=== PATIENT | female | born 1985 | race Caucasian/White ===

== ENCOUNTER 2021-12-24 10:07 | Inpatient (IN) ==
[2021-12-24] MEDS ORDERED: Buffered Lidocaine 1% SYRIN 1 ml INTRADERM ONE (10:50)
[2021-12-24] MEDS ORDERED: Lactated Ringers 1000 ml BAG 1,000 ML IV ONE ×2 (10:50→20:29)
[2021-12-24] MEDS ORDERED: miSOPROStol 100 mcg TAB PO ONE (11:17)
[2021-12-24] MEDS ORDERED: Penicillin G Potassium IV 5,000,000 UNITS in NS 0.9% 100 ml BAG 100 ML IVPB ONE (11:18)
[2021-12-24 11:55] LABS: Urine Benzodiazepine Screen None Detected (None Detect); Urine Cannabinoids Screen None Detected (None Detect); Urine Opiates Screen None Detected (None Detect)
[2021-12-24 11:57] LABS: ABS Lymphocytes 1.1 10^3/ul (1.0-4.8); ABS Monocytes 0.6 10^3/ul (0-0.8); ABS Neutrophils 6.6 10^3/ul (1.5-7.7); Eosinophil % 0.5 %; Hematocrit 34 % (35-47); Hemoglobin 11.7 g/dL (12.0-16.0); Lymphocyte % 13.3 %; Mean Corpuscular HGB Conc 35 g/dL (31-36); Mean Corpuscular Hemoglobin 31 pg (27-31); Mean Corpuscular Volume 90 fL (80-97); Mean Platelet Volume 7.4 fL (7.4-10.4); Nucleated Red Blood Cells % 0.1; Platelet Count 233 10^3/uL (150-450); Red Blood Count 3.74 10^6 /uL (3.70-4.87); Red Cell Distribution Width 14 % (10-15); White Blood Count 8.3 10^3/uL (3.5-10.8)
[2021-12-24 12:32] LABS: Urine Appearance Clear; Urine Color Yellow; Urine Specific Gravity 1.015 (1.005-1.030)
[2021-12-24 12:33] LABS: Urine Bilirubin Negative (Negative); Urine Blood Negative (Negative); Urine Glucose Negative (Negative); Urine Ketones Negative (Negative); Urine Nitrite Negative (Negative); Urine Protein Negative (Negative); Urine Urobilinogen 0.2 (Negative) (Negative)
[2021-12-24 12:39] LABS: Albumin 3.4 g/dL (3.2-5.2); Albumin/Globulin Ratio 1.5 (1-3); Globulin 2.2 g/dL (2-4); Potassium 3.2 mmol/L (3.5-5.0); Total Bilirubin 0.5 mg/dL (0.2-1.0); Total Protein 5.6 g/dL (6.4-8.9); Uric Acid 4.2 mg/dL (2.3-6.6)
[2021-12-24 12:50] LABS: Urine Bacteria 2+ (Absent); Urine Red Blood Cell Trace(0-2/hpf) (Absent); Urine Squamous Epithelial Cell Present (Absent); Urine White Blood Cell Trace(0-5/hpf) (Absent)
[2021-12-24 19:07] LABS: HIV 4th Generation Nonreactive (Nonreactive)
[2021-12-24] MEDS ORDERED: OBEPIDURAL (200 ML) 200 ML EPIDURAL ONE (19:40)
[2021-12-24] MEDS ORDERED: Phenylephrine 40 mcg/mL 10mL (400mcg) SYRINGE IV PUSH PRN ×2 (20:29)
[2021-12-24] MEDS ORDERED: Sodium Citrate/Citric Acid LIQ 15 ML UDC PO PRN (20:29)
[2021-12-24] MEDS: Penicillin G Potassium IV 3,000,000 UNITS in NS 0.9% 100 ml BAG 100 ML IVPB SCH (20:50)
[2021-12-24] MEDS ORDERED: Lactated Ringers 1000 ml BAG 1,000 ML IV SCH (21:00)
[2021-12-24] MEDS ORDERED: OBEPIDURAL (200 ML) 200 ML EPIDURAL SCH (21:00)
[2021-12-24 21:11] LABS: Urine Appearance Clear; Urine Color Yellow; Urine Urobilinogen 0.2 (Negative) (Negative)
[2021-12-24 21:12] LABS: Urine Bilirubin Negative (Negative); Urine Blood Negative (Negative); Urine Glucose Negative (Negative); Urine Ketones Negative (Negative); Urine Nitrite Negative (Negative); Urine Protein Negative (Negative)
[2021-12-24] MEDS ORDERED: Oxytocin in LR 20 UNITS/1,000 ML BAG IVPB SCH (23:45)
[2021-12-25] MEDS: Penicillin G Potassium IV 3,000,000 UNITS in NS 0.9% 100 ml BAG 100 ML IVPB SCH ×5 (00:52→17:41)
[2021-12-25] MEDS ORDERED: Lidocaine 2% w/ EPI 1:200,000 MPF 20 ML SDV VIAL ONE ×2 (03:33→06:21)
[2021-12-25] MEDS: Lactated Ringers 1000 ml BAG 1,000 ML IV SCH ×2 (03:43→06:13)
[2021-12-25] MEDS ORDERED: Ondansetron 4 mg VIAL 2 MG/ML 2 ml VIAL ONE ×2 (03:52→19:44)
[2021-12-25] MEDS: Ondansetron 4 mg VIAL 2 MG/ML 2 ml VIAL IV PRN (03:57)
[2021-12-25] MEDS ORDERED: OBEPIDURAL (200 ML) 200 ML EPIDURAL ONE (07:43)
[2021-12-25] MEDS ORDERED: Ropivacaine (OR use only) 2 MG/ML 10 ML ONE ×2 (08:28→10:17)
[2021-12-25] MEDS ORDERED: Sodium Citrate/Citric Acid LIQ 15 ML UDC PO PRN (11:24)
[2021-12-25] MEDS ORDERED: Phenylephrine 40 mcg/mL 10mL (400mcg) SYRINGE IV PUSH PRN ×2 (11:24)
[2021-12-25] MEDS ORDERED: Lactated Ringers 1000 ml BAG 1,000 ML IV ONE (11:24)
[2021-12-25] MEDS ORDERED: Lactated Ringers 1000 ml BAG 1,000 ML IV SCH ×2 (12:00→21:00)
[2021-12-25] MEDS ORDERED: OBEPIDURAL (200 ML) 200 ML EPIDURAL SCH (12:00)
[2021-12-25] MEDS ORDERED: Labetalol IV 5 MG/ML 20 ml VIAL IV PUSH ONE ×3 (14:30→21:34)
[2021-12-25] MEDS ORDERED: Calcium Carb (TUMS) 500 mg CHEW TAB ONE (16:07)
[2021-12-25] MEDS ORDERED: Calcium Carb (TUMS) 500 mg CHEW TAB PO PRN (16:07)
[2021-12-25] MEDS ORDERED: Chloroprocaine 3% 20 ml VIAL ONE ×2 (17:58→18:18)
[2021-12-25] MEDS ORDERED: ceFOXitin 2 GM IVPREMIX 2 GM/50 ML BAG IVPB ONE (18:02)
[2021-12-25] MEDS ORDERED: Sodium Citrate/Citric Acid LIQ 15 ML UDC ONE (18:45)
[2021-12-25] MEDS ORDERED: Lidocaine 2% PF 10 ML AMP (OR) ONE (18:52)
[2021-12-25] MEDS ORDERED: Oxytocin 10 UNITS/ML 1 ML VIAL ONE (19:05)
[2021-12-25] MEDS ORDERED: Carboprost Tromethamine 250 mcg 1 ml VIAL ONE (19:32)
[2021-12-25] MEDS: Carboprost Tromethamine 250 mcg 1 ml VIAL IM ONE ×2 (19:34)
[2021-12-25] MEDS ORDERED: Morphine PF AMP (0.5MG/ML) 5 MG/10 ML AMP ONE (19:37)
[2021-12-25] MEDS ORDERED: Phenylephrine IV 10 MG/ML 1 ml VIAL ONE (19:48)
[2021-12-25] MEDS ORDERED: Naloxone 0.4 mg VIAL 0.4 mg/ml 1 ml VIAL IV PRN (19:58)
[2021-12-25] MEDS ORDERED: Ondansetron 4 mg VIAL 2 MG/ML 2 ml VIAL IV PRN (19:58)
[2021-12-25] MEDS ORDERED: Acetaminophen IV 1 GM/100ML 100 ML IV PRN (19:59)
[2021-12-25] MEDS ORDERED: Acetaminophen IV 1 GM/100ML 100 ML IV ONE (20:23)
[2021-12-25] MEDS ORDERED: hydrALAZINE 20 mg/ml 1 ML Vial IV ONE (20:38)
[2021-12-25] MEDS ORDERED: Glycerin ADULT 2.4 gm SUPP PR PRN (20:42)
[2021-12-25] MEDS ORDERED: RHO D Immune Globulin (HUMAN) 300 MCG = 1,500 I.U. INJ IM PRN (20:42)
[2021-12-25] MEDS ORDERED: Witch Hazel PAD JAR TOPICAL PRN (20:42)
[2021-12-25] MEDS ORDERED: hydrALAZINE 20 mg/ml 1 ML Vial IV IV SLOW PU ONE ×2 (20:44→21:07)
[2021-12-25] MEDS ORDERED: Calcium Gluconate 1 GM/10 ML VIAL (in Pyxis) IV PUSH PRN (21:35)
[2021-12-25] MEDS ORDERED: Magnesium Sulfate OB PREMIX 4 GM/100 ML BAG IV ONE (21:36)
[2021-12-25] MEDS ORDERED: Magnesium Sulfate OB PREMIX 40 GM/1,000 ML BAG IVPB SCH (22:00)
[2021-12-26 06:37] LABS: ABS Lymphocytes 1.4 10^3/ul (1.0-4.8); ABS Monocytes 0.8 10^3/ul (0-0.8); ABS Neutrophils 11.8 10^3/ul (1.5-7.7); Eosinophil % 0.2 %; Hematocrit 26 % (35-47); Lymphocyte % 9.8 %; Mean Corpuscular HGB Conc 35 g/dL (31-36); Mean Corpuscular Hemoglobin 32 pg (27-31); Mean Corpuscular Volume 93 fL (80-97); Mean Platelet Volume 7.5 fL (7.4-10.4); Platelet Count 211 10^3/uL (150-450); Red Blood Count 2.81 10^6 /uL (3.70-4.87); Red Cell Distribution Width 14 % (10-15); White Blood Count 14.1 10^3/uL (3.5-10.8)
[2021-12-26 07:02] LABS: Albumin 2.5 g/dL (3.2-5.2); Albumin/Globulin Ratio 1.4 (1-3); Calcium 8.1 mg/dL (8.6-10.3); Globulin 1.8 g/dL (2-4); Potassium 3.5 mmol/L (3.5-5.0); Total Bilirubin 0.5 mg/dL (0.2-1.0); Total Protein 4.3 g/dL (6.4-8.9); Uric Acid 3.9 mg/dL (2.3-6.6); eGFR CKD-EPI 120.5 (>60)
[2021-12-27] MEDS: Ondansetron 4 mg VIAL 2 MG/ML 2 ml VIAL IV PRN (00:34)
[2021-12-27 01:38] LABS: ABS Eosinophils 0.1 10^3/ul (0-0.6); ABS Lymphocytes 1.3 10^3/ul (1.0-4.8); ABS Monocytes 0.6 10^3/ul (0-0.8); ABS Neutrophils 10.4 10^3/ul (1.5-7.7); Eosinophil % 0.5 %; Hematocrit 24 % (35-47); Lymphocyte % 10.2 %; Mean Corpuscular HGB Conc 34 g/dL (31-36); Mean Corpuscular Hemoglobin 31 pg (27-31); Mean Corpuscular Volume 92 fL (80-97); Mean Platelet Volume 7.5 fL (7.4-10.4); Nucleated Red Blood Cells % 0.1; Platelet Count 213 10^3/uL (150-450); Red Blood Count 2.56 10^6 /uL (3.70-4.87); Red Cell Distribution Width 14 % (10-15); White Blood Count 12.3 10^3/uL (3.5-10.8)
[2021-12-28 12:40] VITALS: BP 144/86
== END 2021-12-28 14:05 | disposition home or self-care (01) | DRG 787 ==
LOC: MCHOBOUT 10:07 → MCHOB 10:50
PROVIDERS: ADMIT Midwife; ATTEND Obstetrics & Gynecology